=== PATIENT | male | born 1945 | race Caucasian/White ===

== ENCOUNTER 2019-03-22 08:48 | Day surgery (SDC) | payer OTHER ==
[~2019-03-22 08:48] MED LIST: PROPOFOL INJ 200 MG/20 ML VIAL IV ONE
[2019-03-22] MEDS ORDERED: PROPOFOL INJ 200 MG/20 ML VIAL IV ONE (11:01)
[2019-03-22 11:48] VITALS: BP 133/62
--- NOTE | 2019-03-22 11:53 | Operative Report ---
Operative Report DATE OF SURGERY: 03/22/19 Operative Report: The risks, benefits and alternatives of the procedure including the risk of bleeding, perforation requiring surgery have been explained to the patient in detail and informed consent has been obtained. Patient is taken back to the endoscopy suite and placed in a left, lateral decubital position. Timeout was called. Propofol medication is administered. Rectal examination is done which did not reveal any masses, tears or fissures. An Olympus videoscope was inserted into the patient's rectum. The scope was then carefully advanced all the way to the cecum. The cecum was identified by the usual anatomical landmarks of the ileocecal valve as well as the appendiceal office. Photodocumentation is obtained. Scope was then sequentially pulled back via the various segments of the colon including the ascending colon, hepatic flexure, transverse colon, splenic flexure, descending colon finding to the rectosigmoid portions of the colon. Retroflexion maneuver is performed. PREOPERATIVE DIAGNOSIS: Personal history of polyp POSTOPERATIVE DIAGNOSIS: Mild inflammation/possible small polyp noted on the right-hand side of the colon status post biopsy removal. Internal hemorrhoids OPERATION: Colonoscopy with biopsy SURGEON: SULMA SNYDER ANESTHESIA: LMAC TISSUE REMOVED OR ALTERED: As noted above. COMPLICATIONS: None. ESTIMATED BLOOD LOSS: None. INTRAOPERATIVE FINDINGS: As noted above. PROCEDURE: Patient tolerated the procedure well. No immediate postprocedure complications are noted. Patient is discharged in good condition. Discharge date 03/22/2019. Discharge diet: Regular. Discharge activity: Regular. 2 to 3-week follow-up to discuss findings. Patient is instructed to call the office or proceed to the emergency room should there be any further questions. Depending on the pathology of the polyp can consider a 10-year surveillance colonoscopy.
== END 2019-03-22 11:45 | disposition home or self-care (01) ==
LOC: END 08:48
PROVIDERS: ATTEND Internal Medicine Gastroenterology
DX: Z12.11 Encounter for screening for malignant neoplasm of colon (principal); Z86.010 Personal history of colon polyps; K64.8 Other hemorrhoids; I10 Essential (primary) hypertension; E11.9 Type 2 diabetes mellitus without complications
CPT/HCPCS: 45380; 88305 ×2; 00811; J2704; 811